=== PATIENT | male | born 1970 | race Caucasian/White ===

== ENCOUNTER 2018-05-02 18:10 | Emergency (ER) | payer MEDICAID, SELFPAY ==
[2018-05-02 18:29] VITALS: BP 131/92; PULSE 83; RESP 20; TEMP 36.5; O2SAT 98; BMI 31.4
--- NOTE | 2018-05-02 18:35 | HMH.EDUTC ---
[facility] [place] Impression: URI (upper respiratory infection) Qualifiers: URI type: unspecified URI Qualified Code(s): J06.9 - Acute upper respiratory infection, unspecified Disposition: Home, Self-Care Condition on Discharge: Good Instructions: DI for Strep Throat, Strep Throat Additional Instructions: * Monitor Temp. Tylenol and/or Ibuprofen as needed. ER if fever is no less than 101 despite alternating Tylenol and Ibuprofen * Encourage fluids, water, Gatorade, powerade, pedialyte if /toddler/or child * Warm salt water gargles for throat irritation *Warm fluids *Sore throat lozenges *Sleep elevated *humidifier or vaporizer Lots of rest Increase fluids, water, Gatorade, powerade Your throat swab was sent to lab for culture. Those results area typically sent to your primary care physician. Be sure to follow up in 2-3 days if no improvement so they can review those results and treat if necessary If you don?t have primary care I recommend you get one, but in the mean time you will have to return to a walk in clinic Follow up IMMEDIATELY for new or worsening of symptoms OR no noticeable improvement over the next 48-72 hours. 911 immediately for any life threatening symptoms such as chest pain or difficulty breathing Referrals: Sanjuana Summers [Primary Care Provider] - As needed Time of Disposition: 18:45 Medical Decision Making - Medical Records Medical records reviewed: Yes: I reviewed the patient's medical records. - Panfilo Inquiry Pt receiving controlled substance: No Panfilo was queried for this patient: No Vital Signs: 05/02/18 18:29 Temperature 97.7 F Temperature Source Temporal Artery Scan Pulse Rate [Brachial] 83 Respiratory Rate 20 Blood Pressure [Right Arm] 131/92 Blood Pressure Mean [Right Arm] 105 Blood Pressure Position [Right Arm] Sitting 02 Sat by Pulse Oximetry 98 - Lab Data Lab results reviewed: Yes: I reviewed the patient's lab results. - Reevaluation(s) Time: 18:42 Reevaluation #1: Rapid strep completed and showed negative result however patient presents with classic symptoms suggesting Strep throat therefore was treated for strep throat accordingly even though negative result due to signs,symptoms, presentation and recent exposure [facility] [place] General Stated complaint: sore throat Time Seen by Provider: 05/02/18 18:35 Mode of Arrival: Ambulatory Source of Information: Patient Limitations: No Limitations Description of Symptoms (Recalled from Triage Doc. by RN): EXPOSED TO STREP THROAT. SORE THROAT SINCE WEDNESDAY HEENT Symptoms (Recalled from RN notes): Yes Resp Symptoms (Recalled from RN notes): No Skin Symptoms (Recalled from RN notes): No MS Symptoms (Recalled from RN notes): No Functional Status (Recalled from RN notes): NA - History of Present Illness Provider Complaint: Patient state that he was recently exposed to strep throat State that since Wednesday his throat has been hurting and continued to get worse State that he noticed white patches on his throat and was worried that he may have strep throat so he came in to get checked out - Related Data Home Medications Medication Instructions Recorded Confirmed Amlodipine Besylate [Amlodipine 10 mg PO DAILY 05/02/18 05/02/18 10mg Tab] Buspirone HCl [Buspar 5mg tablet] 0 mg PO DAILY 05/02/18 05/02/18 Citalopram Hydrobromide 20 mg PO DAILY 05/02/18 05/02/18 [Citalopram HBr] Fenofibrate Nanocrystallized 145 mg PO DAILY 05/02/18 05/02/18 [Fenofibrate] Loratadine [Claritin 10mg Tablet] 10 mg PO DAILY 05/02/18 05/02/18 hydrOXYzine HCl [Hydroxyzine HCl] 25 mg PO DAILY 05/02/18 05/02/18 Allergies Allergy/AdvReac Type Severity Reaction Status Date / Time Fish Containing Products Allergy Unknown Verified 05/02/18 18:31 [FISH CONTAINING PRODUCTS] SHELLFISH (FOOD) Allergy Unknown THROAT Uncoded 10/26/17 14:06 SWELLING - Worker's Comp Is this a Worker's Comp case?: No [facility] History I
[2018-05-02 18:39] LABS: UTC Strep Screen (Rapid) Negative (Negative)
[2018-05-02 18:53] VITALS: BP 131/92; PULSE 83; RESP 20; TEMP 36.6; O2SAT 98
== END 2018-05-02 18:53 | disposition home or self-care (01) ==
PROVIDERS: Emergency Provider Nurse Practitioner; Family Provider Internal Medicine Adolescent Medicine; PCP Nurse Practitioner Family
DX: J06.9 Acute upper respiratory infection, unspecified (principal)
CPT/HCPCS: 87880; 96372; 99202; J0561

== ENCOUNTER 2020-08-01 13:38 | Emergency (ER) | payer MEDICAID, SELFPAY ==
[2020-08-01 14:04] VITALS: BP 140/91; PULSE 91; RESP 19; TEMP 37; O2SAT 98; BMI 32.1
--- NOTE | 2020-08-01 14:17 | HMH.EDUTC ---
[facility] [place]position Clinical Impression: URI (upper respiratory infection) Qualifiers: URI type: unspecified URI Qualified Code(s): J06.9 - Acute upper respiratory infection, unspecified Disposition: Home, Self-Care Condition on Discharge: Good Instructions: Sore Throat, Preventing the Spread of Coronavirus Discharge Instructions Additional Instructions: *Monitor Temp, Over the counter Motrin or Tylenol as directed/as needed Tylenol every 4 hours and Motrin every 6 hours (as long as your family doctor has told you that you can take it) for fever or pain. and straight to ER if unable to lower temp less than 101.0 after medication given *Warm salt water gargles may help to soothe the throat *Throat Lozenges *Warm fluids like tea with honey may help to soothe the throat *Sleep elevated *Humidifier/Vaporizer *Flonase 2 sprays in each nostril daily but be aware that it may take 2-3 days before you notice improvement Your throat swab was sent for culture. Those results are typically sent to your primary care. Be sure to follow up in 2-3 days with your family doctor/primary care physician if no improvement so they can review those result and treat if necessary. If you don?t have a primary care doctor, I recommend you get one but in the mean time, you will have to return to a walk in clinic Follow up IMMEDIATELY for new or worsening symptoms or no Noticeable improvement over the next 48-72 hours. 911 for difficulty breathing or swallowing You was tested for today for COVID19 your test result should be back within the next 48-72 hours, call back to the [facility] to see if your test results are back and the result You was given a handout with instructions for Self Quarantine and Self isolation for while you wait on test results and what to do if they are positive Prescriptions: Fluticasone Propionate [Flonase 50mcg nasal spray 16gm] 1 - 2 spr NS DAILY #1 bottle Transmission Status: Pending to [facility] Cefdinir [Omnicef 300mg Capsule] 300 mg PO BID #20 cap Transmission Status: Pending to [facility] Referrals: Sanjuana Summers [Primary Care Provider] - As needed Time of Disposition: 14:41 Medical Decision Making - Panfilo Inquiry Pt receiving controlled substance: No Panfilo was queried for this patient: No Vital Signs: 08/01/20 14:04 Temperature 98.6 F Temperature Source Oral Pulse Rate [Right Brachial] 91 H Respiratory Rate 19 Blood Pressure [Right Arm] 140/91 H Blood Pressure Mean [Right Arm] 107 Blood Pressure Source [Right Arm] Automatic Cuff Blood Pressure Position [Right Arm] Sitting 02 Sat by Pulse Oximetry 98 Oxygen Delivery Method Room Air - Lab Data Lab results reviewed: Yes: I reviewed the patient's lab results. Lab Results 08/01/20 13:54: Strep Scn Rapid Clinic Negative Orders (Tests/Meds): ED MEDICATIONS Discontinued Medications Generic Name Dose Route Start Last Admin Trade Name Freq PRN Reason Stop Dose Admin Ondansetron HCl 4 mg 08/01/20 14:35 Zofran 4mg Odt SL 08/01/20 14:36 ONCE ONE ORDERS Category Date Time Status Strep Screen Confirmation Stat Micro 08/01/20 13:54 Received [facility] [place] HPI - General Stated complaint: sore throat Time Seen by Provider: 08/01/20 14:17 Mode of Arrival: Ambulatory Source of Information: Patient Limitations: No Limitations Description of Symptoms (Recalled from Triage Doc. by RN): PATIENT C/O SORE THROAT X 3 DAYS HEENT Symptoms (Recalled from RN notes): Yes Resp Symptoms (Recalled from RN notes): No Skin Symptoms (Recalled from RN notes): No MS Symptoms (Recalled from RN notes): No Functional Status (Recalled from RN notes): WNL - History of Present Illness Provider Complaint: Patient states that he has been having sore throat for about 3 days and thinks he may have strep throat States that he has had strep throat several times and feels like it did when he has had it before - Related Data Home Medications
[2020-08-01 14:32] LABS: UTC Strep Screen (Rapid) Negative (Negative)
[2020-08-01 14:50] VITALS: BP 140/91; PULSE 91; RESP 19; TEMP 37; O2SAT 98
[2020-08-03 18:15] LABS: Covid-19 Nasal PCR Sendout Lex NOT DETECTED
== END 2020-08-01 14:53 | disposition home or self-care (01) ==
PROVIDERS: Emergency Provider Nurse Practitioner; PCP Nurse Practitioner Family
DX: J06.9 Acute upper respiratory infection, unspecified (principal); Z20.828 Contact with and (suspected) exposure to other viral communicable diseases; E78.5 Hyperlipidemia, unspecified; I10 Essential (primary) hypertension; Z79.899 Other long term (current) drug therapy
CPT/HCPCS: 87880; 99202; U0004

== ENCOUNTER 2020-10-13 12:35 | Emergency (ER) | payer MEDICAID, SELFPAY ==
[2020-10-13 13:05] VITALS: BP 147/90; PULSE 118; RESP 16; TEMP 36.8; O2SAT 96; BMI 32.1
--- NOTE | 2020-10-13 13:25 | HMH.EDUTC ---
[facility] [place] Clinical Impression: URI (upper respiratory infection) Qualifiers: URI type: unspecified viral URI Qualified Code(s): J06.9 - Acute upper respiratory infection, unspecified Disposition: Home, Self-Care Condition on Discharge: Good Instructions: Preventing the Spread of Coronavirus Discharge Instructions, DI for Viral Upper Respiratory Infection -- Adult Additional Instructions: No sign of a bacterial infection. Likely viral. Viruses can take 7-14 days to run their course. Nasal saline and bulb syringe or nose Tracey to remove nasal drainage to help with nasal congestion. Hard to eat, drink, sleep with nasal congestion so important to keep this cleaned out. Monitor temp. Tylenol or Motrin as needed for pain or fever Encourage fluids, water, Gatorade, Powerade, Pedialyte if infant/toddler/child Warm salt water gargles Warm fluids Sore throat lozenges Sleep elevated Humidifier/vaporizer Your covid swab was sent. These results are typically sent to the primary care. Be sure you follow-up in 2-3 days if no improvement so we can review the results and treat if necessary Follow-up immediately for new or worsening symptoms or no noticeable improvement over the next 48-72 hours. isolate until test results are neg Referrals: Sanjuana Summers [Primary Care Provider] - Time of Disposition: 13:41 Medical Decision Making - Panfilo Inquiry Pt receiving controlled substance: No Vital Signs: 10/13/20 13:05 Temperature 98.3 F Temperature Source Oral Pulse Rate [Right Brachial] 118 H Respiratory Rate 16 Blood Pressure [Right Arm] 147/90 H Blood Pressure Mean [Right Arm] 109 Blood Pressure Source [Right Arm] Automatic Cuff Blood Pressure Position [Right Arm] Sitting 02 Sat by Pulse Oximetry 96 Oxygen Delivery Method Room Air Orders (Tests/Meds): ORDERS Category Date Time Status Covid-19 Nasal PCR ([facility]) Routine Lab 10/13/20 12:48 [place] [facility] [place] - General Chief complaint: [facility] Stated complaint: lungs hurt when breathes,cold sweats Time Seen by Provider: 10/13/20 13:25 Mode of Arrival: Ambulatory Source of Information: Patient Limitations: No Limitations Description of Symptoms (Recalled from Triage Doc. by RN): PATIENT C/O CHILLS, BODY ACHES AND FULLNESS IN CHEST SINCE YESTERDAY HEENT Symptoms (Recalled from RN notes): No Resp Symptoms (Recalled from RN notes): No Skin Symptoms (Recalled from RN notes): No MS Symptoms (Recalled from RN notes): Yes Functional Status (Recalled from RN notes): WNL - History of Present Illness Provider Complaint: 50 yr old male presnets for covid test. Having body aches,chills, chest congestion, and low grade fever. - Related Data Home Medications Medication Instructions Recorded Confirmed Amlodipine Besylate [Amlodipine 10 mg PO DAILY 05/02/18 05/02/18 10mg Tab] Buspirone HCl [Buspar 5mg tablet] 0 mg PO DAILY 05/02/18 05/02/18 Citalopram Hydrobromide 20 mg PO DAILY 05/02/18 05/02/18 [Citalopram HBr] Fenofibrate Nanocrystallized 145 mg PO DAILY 05/02/18 05/02/18 [Fenofibrate] Loratadine [Claritin 10mg 10 mg PO DAILY 05/02/18 05/02/18 Tablet] hydrOXYzine HCL [Hydroxyzine HCl] 25 mg PO DAILY 05/02/18 05/02/18 Previous Rx's Medication Instructions Recorded Cefdinir [Omnicef 300mg Capsule] 300 mg PO BID #20 cap 08/01/20 Fluticasone Propionate [Flonase 1 - 2 spr NS DAILY #1 bottle 08/01/20 50mcg nasal spray 16gm] Allergies Allergy/AdvReac Type Severity Reaction Status Date / Time Fish Containing Products Allergy Unknown Verified 05/02/18 18:31 [FISH CONTAINING PRODUCTS] shellfish derived Allergy Verified 08/01/20 14:10 - Worker's Comp Is this a Worker's Comp case?: No [facility] History - Hepatitis A Screen Drug use history?: No High risk sexual behaviors?: No History of sexually transmitted infection?: No Currently employed?: No Childcare worker?: No Do you have indoor plumbing?: Yes Do
[2020-10-13 13:48] VITALS: BP 147/90; PULSE 118; RESP 16; TEMP 36.8; O2SAT 96
== END 2020-10-13 13:57 | disposition home or self-care (01) ==
PROVIDERS: Emergency Provider Nurse Practitioner Family; PCP Nurse Practitioner Family
DX: Z20.828 Contact with and (suspected) exposure to other viral communicable diseases (principal); J06.9 Acute upper respiratory infection, unspecified; I10 Essential (primary) hypertension; E78.5 Hyperlipidemia, unspecified; Z79.899 Other long term (current) drug therapy
CPT/HCPCS: 87804; 99201; U0003

== ENCOUNTER 2021-06-25 19:04 | Emergency (ER) | payer MEDICAID, SELFPAY ==
[2021-06-25 21:03] VITALS: BP 172/97; PULSE 101; RESP 22; O2SAT 96; BMI 32.1
--- NOTE | 2021-06-25 21:29 | HMH.EDUTC ---
[facility] [place] Clinical Impression: Cellulitis of left forearm, Abscess of left forearm Disposition: Home, Self-Care Condition on Discharge: Good Instructions: Cellulitis, Boil Additional Instructions: Keep the affected area clean and dry. Follow up with your regular doctor. Take the antibiotics as directed and apply the topical antibiotics as directed. Apply warm wet compresses to the affected area three or four times per day. GO TO THE ER FOR ANY WORSENING SYMPTOMS Prescriptions: Sulfamethoxazole/Trimethoprim [Bactrim DS tablet] 1 each PO BID 10 Days #20 tab Transmission Status: Received by [facility] Mupirocin [Bactroban 2% Ointment 22gm tube] 1 applicatio TP TID 7 Days #1 tube Transmission Status: Received by [facility] cephALEXin [cephALEXin 500mg capsule] 500 mg PO Q6H 10 Days #40 cap Transmission Status: Received by [facility] Referrals: Sanjuana Summers [Primary Care Provider] - Forms: Work/School Release Time of Disposition: 21:43 Medical Decision Making - Medical Records Medical records reviewed: No: I reviewed the patient's medical records. - Panfilo Inquiry Pt receiving controlled substance: No Vital Signs: 06/25/21 21:03 06/25/21 22:31 Temperature 99.3 F Temperature Source Oral Pulse Rate 98 H Pulse Rate [Left] 101 H Respiratory Rate 22 20 Blood Pressure 171/93 H Blood Pressure [Right Arm] 172/97 H Blood Pressure Mean [Right Arm] 122 02 Sat by Pulse Oximetry 96 Orders (Tests/Meds): ORDERS Category Date Time Status Wound Culture and Gram Stain Stat Micro 06/25/21 21:45 Results [facility] [place] - General Stated complaint: spot on l wrist Time Seen by Provider: 06/25/21 21:20 Mode of Arrival: Ambulatory Source of Information: Patient Limitations: No Limitations Description of Symptoms (Recalled from Triage Doc. by RN): pt c/o cellulitis on his L wrist. 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 the area is red, swollen, hot and has purulent drainage. HEENT Symptoms (Recalled from RN notes): No Resp Symptoms (Recalled from RN notes): No Skin Symptoms (Recalled from RN notes): Yes (L wrist cellulitis) MS Symptoms (Recalled from RN notes): No Functional Status (Recalled from RN notes): na - History of Present Illness Provider Complaint: He works at [employer] [place] 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 He gets small melo frequently on his forearms. At times they get infected. He has had a small burn on his left wrist for the past 4 days. He states that since yesterday, the area has been swelling and having some yellowish drainage from the site. He denies any fever or chills. He is not a known diabetic. - Related Data Home Medications Medication Instructions Recorded Confirmed Amlodipine Besylate [Amlodipine 10 mg PO DAILY 05/02/18 05/02/18 10mg Tab] Buspirone HCl [Buspar 5mg tablet] 0 mg PO DAILY 05/02/18 05/02/18 Citalopram Hydrobromide 20 mg PO DAILY 05/02/18 05/02/18 [Citalopram HBr] Fenofibrate Nanocrystallized 145 mg PO DAILY 05/02/18 05/02/18 [Fenofibrate] Loratadine [Claritin 10mg 10 mg PO DAILY 05/02/18 05/02/18 Tablet] hydrOXYzine HCL [Hydroxyzine HCl] 25 mg PO DAILY 05/02/18 05/02/18 Previous Rx's Medication Instructions Recorded Cefdinir [Omnicef 300mg Capsule] 300 mg PO BID #20 cap 08/01/20 Fluticasone Propionate [Flonase 1 - 2 spr NS DAILY #1 bottle 08/01/20 50mcg nasal spray 16gm] Mupirocin [Bactroban 2% Ointment 1 applicatio TP TID 7 Days #1 tube 06/25/21 22gm tube] Sulfamethoxazole/Trimethoprim 1 each PO BID 10 Days #20 tab 06/25/21 [Bactrim DS tablet] cephALEXin [cephALEXin 500mg 500 mg PO Q6H 10 Days #40 cap 06/25/21 capsule] Allergies Allergy/AdvReac Type Severity Reaction Status Date / Time Fish Containing Products Allergy Unknown Verified 05/02/18 18:31 [FISH CONTAINING PRODUCTS]
[2021-06-25 22:31] VITALS: BP 171/93; PULSE 98; RESP 20; TEMP 37.4
== END 2021-06-25 22:31 | disposition home or self-care (01) ==
PROVIDERS: Emergency Provider Nurse Practitioner Family; PCP Nurse Practitioner Family
DX: L03.114 Cellulitis of left upper limb (principal)
CPT/HCPCS: 87070; 87077; 87186; 87205; 99202; G0463